=== PATIENT | female | born 1990 | race Caucasian/White ===

== ENCOUNTER 2016-11-23 18:26 | Day surgery (SDC) | payer OTHER ==
[~2016-11-23] VITALS: Ht 180.3 cm; Wt 88.9 kg
--- NOTE | 2016-11-23 18:26 | NUR ---
Pt placed to ER bed 07, to gown, to front desk monitor. Pt s/p U/S today confirming Right ectopic rupture, pt to go through ER for sx. Dr. Swenson at bedside, consent for surgery signed.
--- NOTE | 2016-11-23 18:30 | NUR ---
# 18 gauge angiocath placed to RAC. Use of asceptic technique. Opsite placed over site. Blood return noted. Blood for lab drawn from site. Flushed with 10 cc of normal saline. No evidence of infiltration noted. Patient tolerated well.
[2016-11-23 18:32] VITALS: BP_SYST 123
--- NOTE | 2016-11-23 18:34 | NUR ---
Dr. Gabriel at bedside for evaluation
[2016-11-23] MEDS ORDERED: NACL 0.9% 1,000 ML IV ONE (19:00)
--- NOTE | 2016-11-23 19:00 | NUR ---
Patient will be admitted to care of Dr. Swenson. Admitted to Surgery unit. Summary report printed. Report given to surgery team. Addendum: 11/23/16 at 1921 by NIKKI Pt leaving ER with OR team.
[2016-11-23 19:04] LABS: BILIRUBIN,URINE NEGATIVE (NEGATIVE); BLOOD, URINE 2+ (NEGATIVE); CLARITY/URINE CLEAR (CLEAR); COLOR,URINE YELLOW (YELLOW); GLUCOSE,URINE NEGATIVE (NEGATIVE); KETONES,URINE TRACE (NEGATIVE); LEUKOCYTE ESTERASE ,URINE NEGATIVE (NEGATIVE); NITRITE, URINE NEGATIVE (NEGATIVE); PH,URINE 5.5 (5.0-8.0); PROTEIN URINE NEGATIVE (NEGATIVE); UROBILINOGEN,URINE 0.2 (0.2-1.0)
[2016-11-23 19:08] LABS: PROTHROMBIN TIME 10.9 SECS (9.5-12.5)
[2016-11-23 19:09] LABS: CALCIUM 8.9 mg/dL (8.4-11.0); CREATININE 1.07 mg/dL (0.55-1.30); POTASSIUM 3.8 mmol/L (3.5-5.1)
[2016-11-23 19:13] LABS: BASOPHILS % (AUTO) 0.3 % (0.0-2.0); EOSINOPHILS # (AUTO) 0.2 K/uL (0.0-0.4); EOSINOPHILS % (AUTO) 2.2 % (0.0-4.0); HEMATOCRIT 41.4 % (36-48); HEMOGLOBIN 13.8 g/dL (12.0-16.0); LYMPHOCYTES % (AUTO) 34.2 % (20.5-51.5); MEAN CORPUSCULAR HEMOGLOBIN 31 pg (27-31); MEAN CORPUSCULAR HGB CONC 33 % (32-36); MEAN CORPUSCULAR VOLUME 92 fL (79.0-98.0); MONOCYTES # (AUTO) 0.4 K/uL (0.0-1.0); MONOCYTES % (AUTO) 5.1 % (1.7-9.3); NEUTROPHILS # (AUTO) 5.1 K/uL (1.8-7.7); NEUTROPHILS % (AUTO) 58.2 % (40.0-70.0); PLATELET COUNT (AUTO) 352 K/uL (130-430); RED BLOOD CELL COUNT(AUTO) 4.49 MIL/uL (4.2-6.2); RED CELL DISTRIBUTION WIDTH 12.3 % (9.0-15.0); WHITE BLOOD COUNT (AUTO) 8.7 K/uL (4.8-10.8)
[2016-11-23 19:14] LABS: ALBUMIN 4.1 g/dL (3.4-4.8); TOTAL BILIRUBIN 0.7 mg/dL (0.0-1.0); TOTAL PROTEIN, SERUM 7.8 g/dL (6.4-8.3)
--- NOTE | 2016-11-23 19:24 | NUR ---
2 calls placed to OR regarding checklist-no answer
[2016-11-23] MEDS ORDERED: NEOSTIGMINE METHYLSULFATE 1 MG/ML, 10 ML VIAL IVP ONE (19:25)
[2016-11-23] MEDS ORDERED: ONDANSETRON HCL 4 MG/2 ML VIAL IVP ONE (19:25)
[2016-11-23] MEDS ORDERED: GLYCOPYRROLATE 0.2 MG/ML VIAL IJ ONE (19:25)
[2016-11-23] MEDS ORDERED: NS 1000 ML BAG IV ONE (19:25)
[2016-11-23] MEDS ORDERED: fentaNYL CITRATE 250 MCG/5 ML AMP IV ONE (19:25)
[2016-11-23] MEDS ORDERED: MIDAZOLAM HCL 5 MG/5 ML VIAL IVP ONE (19:25)
[2016-11-23] MEDS ORDERED: BUPIVACAINE /EPINEPHRINE/PF 0.5% 30 ML VIAL INJ ONE (19:25)
[2016-11-23] MEDS ORDERED: PROPOFOL 200MG/ 20ML VIAL (DIPRIVAN) IV ONE (19:25)
[2016-11-23] MEDS ORDERED: ROCURONIUM BROMIDE 10 MG/ML (ZEMURON) IV ONE (19:25)
[2016-11-23] MEDS ORDERED: NS IRRIG SOLN 1000 ML IR ONE (19:25)
[2016-11-23] MEDS ORDERED: LR 1,000 ML IV.SOLN IV ONE (19:25)
[2016-11-23] MEDS ORDERED: KETOROLAC TROMETHAMINE 30 MG VIAL IVP ONE (19:25)
[2016-11-23] MEDS ORDERED: DEXAMETHASONE SOD PHOSPHATE 4 MG/ML VIAL IVP ONE (19:25)
[2016-11-23] MEDS ORDERED: SEVOFLURANE 15 MIN GAS INH ONE (19:25)
[2016-11-23 19:35] LABS: BACTERIA,URINE FEW /HPF (None Seen); MUCUS,URINE 1+ /LPF (None Seen); WBC,URINE 0-3 /HPF (0-3)
[2016-11-23] MEDS ORDERED: LR 1,000 ML IV SCH (20:24)
[2016-11-23] MEDS ORDERED: MEPERIDINE HCL/PF 25 MG/ML DISP.SYRIN IVP PRN (20:30)
[2016-11-23] MEDS ORDERED: HYDROmorphone 2 MG/ML VIAL IVP PRN ×2 (20:30)
[2016-11-23] MEDS ORDERED: HYDROmorphone 1 MG INJ. 1 MG/ML AMPUL IVP PRN (20:30)
[2016-11-23] MEDS ORDERED: PROMETHAZINE HCL 25 MG/ML AMP IM PRN (21:00)
[2016-11-23] MEDS ORDERED: OXYCODONE/ACETAMINOPHEN 5-325 TABLET PO PRN (21:00)
[2016-11-23] MEDS ORDERED: ONDANSETRON HCL 4 MG/2 ML VIAL IVP PRN (21:00)
[2016-11-23] MEDS ORDERED: HYDROmorphone 2 MG/ML VIAL ONE (21:23)
--- NOTE | 2016-11-23 22:30 | NUR ---
NOTES; RECEIVED PT FROM OR TO ROOM 125C. PT IN IN BED. A/A/O X4, ABLE TO MAKE NEEDS KNOWN. EVERY 15MIN OF VITAL SIGNS FOR POST-OP ONGOING. PT IS FULLY AWAKE, IV SALINE LOCK TO THE RT FOREARM GAUGE, 18, PATENT. SCANT BLOOD NOTED IN JORGE A PAD. SCD TO DEMAR LOWER EXT. PT DENIES ANY PAIN AT THIS TIME. BED LOCKED AND IN LOW POSITION, SIDE RAILS UP X3, BED ALARM ON. CALL LIGHT AND BEDSIDE TABLE WITHIN REACH. WILL CONTINUE TO MONITOR. Addendum: 11/24/16 at 0810 by Sarah Chowdhury LVN PT DEMONSTRATED IS UP TO 2500cc.
[2016-11-23 22:36] VITALS: BP_SYST 96
--- NOTE | 2016-11-23 23:10 | NUR ---
NOTES; PT ASSISTED TO THE BATHROOM. PT SAT DOWN ON THE TOILET FOR SOMETIME BUT WAS UNABLE TO VOID. PT STATED SHE WILL ATTEMPT LATER. BLADDER NONDISTENDED. ASSISTED TO BED WITH GAIT STEADY. C/O NAUSEA AT THIS TIME. R COVERING NOTIFIED TO MEDICATE PT
--- NOTE | 2016-11-23 23:46 | NUR ---
NOTES; mrsa screen specimen sent to lab.
[2016-11-24] MEDS: HYDROmorphone 2 MG TAB PO PRN ×2 (00:30→07:32)
--- NOTE | 2016-11-24 00:33 | NUR ---
NOTES; PT C/O 12/20 ABD PAIN . DILAUDID 4MG PO ADMINISTERED. REMINDED PT TO USE CALL LIGHT TO CALL FOR ANY NEED TO ASSIST. PT VERBALIZED UNDERSTANDING.
--- NOTE | 2016-11-24 01:33 | NUR ---
notes; pt denies any pain at this time.
--- NOTE | 2016-11-24 02:50 | NUR ---
NOTES; AWAKE, TALKING ON HER CELL PHONE. NO ACUTE DISTRESS NOTED. SAFETY MEASURES IN PROGRESS. CALL LIGHT WITHIN REACH.
[2016-11-24] MEDS: KETOROLAC TROMETHAMINE 30 MG VIAL IVP PRN ×2 (04:06→09:21)
--- NOTE | 2016-11-24 04:30 | NUR ---
NOTES; PT APPEARED TO BE SLEEPING, EYES CLOSED. RESPIRATION EVEN AND UNLABORED. NO ACUTE DISTRESS NOTED. SAFETY MEASURES IN PROGRESS.
[2016-11-24 05:54] VITALS: BP_SYST 104
--- NOTE | 2016-11-24 07:30 | NUR ---
NOTES; PT C/O 12/20 ABD PAIN. DILAUDID 4MG PO ADMINISTERED.
--- NOTE | 2016-11-24 07:30 | NUR ---
NOTES; PT HAS NOT VOIDED. ABD NOT DISTENDED. PT IS TOLERATING PO FLUIDS AT THIS TIME. PT C/O PAIN AND WAS MEDICATED. PER PT WHEN HER PAIN SUBSIDE SHE WILL WALK TO THE BATHROOM AND SIT ON THE TOILET AND URINATE. ENDORSED TO AM NURSE TO MONITOR PT OUT PUT.
--- NOTE | 2016-11-24 07:39 | NUR ---
INITIAL NOTE: PATIENT IS ALERT, ORIENTED X4, STATES HAVING ABDOMINAL PAIN 8/10<PAIN PILLS GIVEN>. STATES HAS NOT VOIDED SINCE LAST NIGHT , NO SIGN OF DISTENDED BLADDER. SHE SAID HAVING A LITTLE BIT FEELING , WILL TRY TO THE BATH ROOM AFTER PAIN GETTING BETTER. SMALL ABDOMINAL INCISIONS x3,DRY-INTACT, NO DRAINAGE. WILL MONITOR VOIDING.
[2016-11-24 07:54] VITALS: BP_SYST 106
--- NOTE | 2016-11-24 09:09 | NUR ---
VOIDED: ASSIST PATIENT WALKS TO THE BATHROOM AND SHE HAS VOIDED X1, STILL HAS TINY BIT OF BLEEDING ON THE PAD.
[2016-11-24 11:50] VITALS: BP_SYST 104
[2016-11-24 12:48] VITALS: BP_SYST 104
--- NOTE | 2016-11-24 13:00 | NUR ---
D/C Patient Patient given D/C instructions. Patient verbalized understanding. MD discussed with patient the results and treatment provided. Ambulatory with steady gait for discharge to home. Patient in stable condition, ID band removed. IV catheter removed, intact and dressing applied, no active bleeding. Rx of given by MD on admission day. Patient educated on pain management. All belongings sent with patient.
== END 2016-11-24 13:00 | disposition home or self-care (01) ==
LOC: SED 18:26 → SDS 19:52 → UNDOADMOB 19:52 → SMU 19:52 → SED 20:05 → SMU 20:45 → UNDODISOB 11-24 13:00 → SDS 11-24 13:00
PROVIDERS: ATTEND Obstetrics & Gynecology
DX: O00.10 Tubal pregnancy without intrauterine pregnancy (principal); N39.0 Urinary tract infection, site not specified; E66.9 Obesity, unspecified
CPT/HCPCS: 36415; 59151; 80053; 81000; 84702; 85025; 85610; 85730; 86886; 86900; 86901; 87081; 88305; C1727; J1100; J1170; J1885 ×2; J2250; J2405; J2704; J2710; J3010; J3490 ×2; J7030; J7120; G0378